=== PATIENT | male | born 1955 | race Caucasian/White ===

== ENCOUNTER 2018-01-08 18:55 | Emergency (ER) | payer SELFPAY ==
[~2018-01-08] VITALS: Ht 177.8 cm; Wt 110.6 kg
[2018-01-08 22:28] VITALS: BP 142/99
== END 2018-01-08 22:29 | disposition home or self-care (01) ==
LOC: EME 18:55
PROC: 2W38X1Z Immobilization of Right Upper Extremity using Splint (ICD-10-PCS; principal; 2018-01-08)
DX: S52.121A Displaced fracture of head of right radius, initial encounter for closed fracture (principal); V03.99XA Pedestrian with other conveyance injured in collision with car, pick-up truck or van, unspecified whether traffic or nontraffic accident, initial encounter; Y92.410 Unspecified street and highway as the place of occurrence of the external cause; F17.200 Nicotine dependence, unspecified, uncomplicated
CPT/HCPCS: 73080; 99281; 99283

== ENCOUNTER 2018-01-14 19:07 | Emergency (ER) | payer SELFPAY ==
[~2018-01-14] VITALS: Ht 177.8 cm; Wt 110.6 kg
[2018-01-15] MEDS ORDERED: BACITRACIN3.5 GM TP (02:44)
[2018-01-15 02:51] VITALS: BP 124/61
== END 2018-01-15 02:53 | disposition home or self-care (01) ==
LOC: EME → EDBD 19:07 → EME 01-15 02:53
PROC: 2W38X1Z Immobilization of Right Upper Extremity using Splint (ICD-10-PCS; principal; 2018-01-15)
DX: F10.129 Alcohol abuse with intoxication, unspecified (principal); S52.121D Displaced fracture of head of right radius, subsequent encounter for closed fracture with routine healing; Z47.89 Encounter for other orthopedic aftercare; Y90.9 Presence of alcohol in blood, level not specified; Z89.612 Acquired absence of left leg above knee; F17.200 Nicotine dependence, unspecified, uncomplicated; Z59.0 Homelessness
CPT/HCPCS: 73080; 99281; 99284

== ENCOUNTER 2018-01-17 19:13 | Emergency (ER) | payer SELFPAY ==
[~2018-01-17] VITALS: Ht 177.8 cm; Wt 110.6 kg
[~2018-01-17 19:13] MED LIST: BACITRACIN3.5 GM TP
[2018-01-17 20:33] VITALS: BP 134/73
== END 2018-01-17 20:30 | disposition home or self-care (01) ==
LOC: EME 19:13
DX: F10.129 Alcohol abuse with intoxication, unspecified (principal)
CPT/HCPCS: 99281; 99283

== ENCOUNTER 2018-01-18 18:11 | Emergency (ER) | payer OTHER ==
[~2018-01-18] VITALS: Ht 177.8 cm; Wt 81.8 kg
[2018-01-19 01:12] VITALS: BP 116/76
== END 2018-01-19 01:13 | disposition home or self-care (01) ==
LOC: EME 18:11
PROC: 2W38X1Z Immobilization of Right Upper Extremity using Splint (ICD-10-PCS; principal; 2018-01-19)
DX: J20.9 Acute bronchitis, unspecified (principal); M79.601 Pain in right arm; S50.11XD Contusion of right forearm, subsequent encounter; Z47.89 Encounter for other orthopedic aftercare; F17.210 Nicotine dependence, cigarettes, uncomplicated; Z59.0 Homelessness
CPT/HCPCS: 71046

== ENCOUNTER 2018-01-27 23:30 | Observation (INO) | payer OTHER ==
[~2018-01-27] VITALS: Ht 177.8 cm; Wt 109.0 kg
[2018-01-27 23:51] LABS: HEMOGLOBIN 13.9 G/DL (12.5-16.6); MCH 29.3 PG (29.0-34.0); MCHC 33.1 G/DL (30.0-36.0); MCV 88.6 FL (86-99); PLATELET COUNT 219 K/uL (156-360); RBC DIS.WIDTH-SD 49.2 % (39-53); RED BLOOD COUNT 4.74 M/uL (4.00-5.50); WHITE BLOOD COUNT 5.8 K/uL (4.1-10.2)
[2018-01-27 23:59] LABS: ALBUMIN 3.9 g/dL (3.2-4.8); CHLORIDE 101 mEq/L (99-109); SODIUM 135 mEq/L (136-147)
[2018-01-28 00:02] LABS: GLUCOSE 92 mg/dL (70-99)
[2018-01-28 00:03] LABS: TOTAL BILIRUBIN 0.4 mg/dL (0.0-1.0)
[2018-01-28 00:05] LABS: ALKALINE PHOSPHATASE 90 IU/L (3-129); CREATININE 0.8 mg/dL (0.6-1.3); GFR ESTIMATE (CALCULATED) > 59 mL/min/ (58.99-99999); SERUM ETHYL ALCOHOL 236 mg/dL
[2018-01-28 00:06] LABS: UREA NITROGEN (BUN) 15 mg/dL (9-23)
[2018-01-28 00:07] LABS: AST (GOT) 35 IU/L (2-34)
[2018-01-28 00:08] LABS: ALT (GPT) 37 IU/L (3-49)
[2018-01-28 00:09] LABS: LIPASE 30 U/L (1.0-51.0)
[2018-01-28 00:12] LABS: TROP-I INTERPRETATION NEGATIVE; TROPONIN-I 0.01 ng/mL (0.0-0.30)
[2018-01-28 04:29] LABS: APPEARANCE CLEAR ((CLEAR)); BILIRUBIN NEGATIVE; BLOOD NEGATIVE; COLOR YELLOW ((YELLOW)); GLUCOSE (STRIP) NEGATIVE; KETONES NEGATIVE; LEUKOCYTES NEGATIVE; NITRITE NEGATIVE; PROTEIN (STRIP) NEGATIVE; SPECIFIC GRAVITY 1.038 (1.000-1.030); UCUL ADDED? NO; UROBILINOGEN 0.2 MG/DL (0.2-1.0)
[2018-01-28 05:20] VITALS: BP 130/67
[2018-01-28 06:36] LABS: TROP-I INTERPRETATION NEGATIVE; TROPONIN-I < 0.01 ng/mL (0.0-0.30)
[2018-01-28 07:12] VITALS: BP 104/60
[2018-01-28 12:09] VITALS: BP 114/69
[2018-01-28] MEDS ORDERED: DOXYCYCLINE HY100 MG PO (13:12)
[2018-01-28] MEDS ORDERED: IBUPROFEN600 MG PO (13:13)
[2018-01-28] MEDS ORDERED: LIBRIUM25 MG PO (13:14)
[2018-01-28 13:51] LABS: TROP-I INTERPRETATION NEGATIVE; TROPONIN-I < 0.01 ng/mL (0.0-0.30)
== END 2018-01-28 16:04 | disposition home or self-care (01) ==
LOC: EME → EDBD 23:30 → EDOF 01-28 03:37 → 5WEST 01-28 03:37 → EDOF 01-28 03:37 → ENRESERV 01-28 03:47 → 5WEST 01-28 04:55
PROVIDERS: Emergency Medicine; Physician Assistant
DX: R07.9 Chest pain, unspecified (principal); L03.115 Cellulitis of right lower limb; F10.129 Alcohol abuse with intoxication, unspecified; Y90.7 Blood alcohol level of 200-239 mg/100 ml; F17.210 Nicotine dependence, cigarettes, uncomplicated; I25.2 Old myocardial infarction; J44.9 Chronic obstructive pulmonary disease, unspecified; Z89.512 Acquired absence of left leg below knee; Z79.82 Long term (current) use of aspirin; Z59.0 Homelessness
CPT/HCPCS: 71045; 71275; 74177; 80053; 81003; 83605; 83690; 83735; 84484; 85027; 93005; 94799; 99281; 99284; G0378; G0480; J1644; J2405; J3411; J7030

== ENCOUNTER 2018-01-30 03:44 | Emergency (ER) | payer OTHER ==
[~2018-01-30] VITALS: Ht 177.8 cm; Wt 120.0 kg
[~2018-01-30 03:44] MED LIST changes: +DOXYCYCLINE HY100 MG PO; +IBUPROFEN600 MG PO; +LIBRIUM25 MG PO
[2018-01-30 06:46] VITALS: BP 106/81
== END 2018-01-30 06:47 | disposition home or self-care (01) ==
LOC: EME 03:44
DX: Z87.898 Personal history of other specified conditions (principal); X31.XXXA Exposure to excessive natural cold, initial encounter; I10 Essential (primary) hypertension; I25.2 Old myocardial infarction; F17.200 Nicotine dependence, unspecified, uncomplicated; Z87.442 Personal history of urinary calculi; Z86.73 Personal history of transient ischemic attack (TIA), and cerebral infarction without residual deficits; Z89.512 Acquired absence of left leg below knee
CPT/HCPCS: 80053; 83605; 83690; 84484; 85027; 87040; 99281; 99283

== ENCOUNTER 2018-01-31 23:02 | Emergency (ER) | payer OTHER ==
[~2018-01-31] VITALS: Ht 177.8 cm; Wt 95.5 kg
[2018-02-01 00:02] LABS: BASOPHIL (%) 0.9 % (0-1); BASOPHIL COUNT 0.1 K/uL (0-0.1); EOSINOPHIL (%) 4.4 % (0-5); EOSINOPHIL COUNT 0.3 K/uL (0-0.3); HEMATOCRIT 45.9 % (38.0-50.0); HEMOGLOBIN 14.8 G/DL (12.5-16.6); IMMATURE GRANULOCYTE (%) 0.5 % (0.0-0.7); LYMPHOCYTE COUNT 2.4 K/uL (1.0-2.8); MCH 29.1 PG (29.0-34.0); MCHC 32.2 G/DL (30.0-36.0); MCV 90.2 FL (86-99); MONOCYTE (%) 11.9 % (3-12); MONOCYTE COUNT 0.7 K/uL (0-0.8); NEUTROPHIL (%) 41.3 % (45-76); NEUTROPHIL COUNT 2.4 K/uL (1.8-6.4); PLATELET COUNT 221 K/uL (156-360); RBC DIS.WIDTH-CV 15.5 % (11.8-14.6); RBC DIS.WIDTH-SD 51.1 % (39-53); RED BLOOD COUNT 5.09 M/uL (4.00-5.50); WHITE BLOOD COUNT 5.9 K/uL (4.1-10.2)
[2018-02-01 00:07] LABS: CHLORIDE 105 mEq/L (99-109); POTASSIUM 4.2 mEq/L (3.7-5.4); SODIUM 141 mEq/L (136-147)
[2018-02-01 00:09] LABS: GLUCOSE 93 mg/dL (70-99)
[2018-02-01 00:12] LABS: SERUM ETHYL ALCOHOL 301 mg/dL
[2018-02-01 00:13] LABS: CREATININE 0.8 mg/dL (0.6-1.3); GFR ESTIMATE (CALCULATED) > 59 mL/min/ (58.99-99999)
[2018-02-01 00:14] LABS: UREA NITROGEN (BUN) 11 mg/dL (9-23)
[2018-02-01] MEDS ORDERED: LEVAQUIN500 MG PO (06:15)
[2018-02-01] MEDS ORDERED: LIBRIUM25 MG PO (06:17)
[2018-02-01 06:38] VITALS: BP 109/69
== END 2018-02-01 06:40 | disposition home or self-care (01) ==
LOC: EME 23:02
PROVIDERS: Emergency Medicine
DX: J20.9 Acute bronchitis, unspecified (principal); F10.129 Alcohol abuse with intoxication, unspecified; I25.2 Old myocardial infarction; Z89.512 Acquired absence of left leg below knee; Z86.73 Personal history of transient ischemic attack (TIA), and cerebral infarction without residual deficits; I10 Essential (primary) hypertension; F17.200 Nicotine dependence, unspecified, uncomplicated
CPT/HCPCS: 71045; 80048; 85025; 99281; 99285; G0480; J7030

== ENCOUNTER 2018-02-01 17:49 | Emergency (ER) | payer OTHER ==
[~2018-02-01] VITALS: Ht 175.3 cm; Wt 81.1 kg
[~2018-02-01 17:49] MED LIST changes: +LEVAQUIN500 MG PO
[2018-02-01 20:24] LABS: HEMATOCRIT 43.8 % (38.0-50.0); HEMOGLOBIN 14.4 G/DL (12.5-16.6); MCH 29.3 PG (29.0-34.0); MCHC 32.9 G/DL (30.0-36.0); MCV 89.2 FL (86-99); PLATELET COUNT 211 K/uL (156-360); RBC DIS.WIDTH-SD 50.3 % (39-53); RED BLOOD COUNT 4.91 M/uL (4.00-5.50); WHITE BLOOD COUNT 6.8 K/uL (4.1-10.2)
[2018-02-01 20:32] LABS: CHLORIDE 103 mEq/L (99-109); POTASSIUM 3.7 mEq/L (3.7-5.4); SODIUM 141 mEq/L (136-147)
[2018-02-01 20:33] LABS: GLUCOSE 123 mg/dL (70-99)
[2018-02-01 20:37] LABS: CREATININE 0.7 mg/dL (0.6-1.3); GFR ESTIMATE (CALCULATED) > 59 mL/min/ (58.99-99999); SERUM ETHYL ALCOHOL 152 mg/dL
[2018-02-01 20:38] LABS: UREA NITROGEN (BUN) 10 mg/dL (9-23)
[2018-02-02 01:20] VITALS: BP 93/74
== END 2018-02-02 01:20 | disposition home or self-care (01) ==
LOC: EME 17:49
DX: F10.10 Alcohol abuse, uncomplicated (principal); F32.9 Major depressive disorder, single episode, unspecified; Y90.6 Blood alcohol level of 120-199 mg/100 ml; Z59.0 Homelessness; F17.200 Nicotine dependence, unspecified, uncomplicated; I10 Essential (primary) hypertension; I25.2 Old myocardial infarction; Z86.73 Personal history of transient ischemic attack (TIA), and cerebral infarction without residual deficits; Z89.512 Acquired absence of left leg below knee
CPT/HCPCS: 80048; 85027; 99281; 99284; G0480

== ENCOUNTER 2018-02-02 15:56 | Emergency (ER) | payer OTHER ==
[~2018-02-02] VITALS: Ht 177.8 cm; Wt 108.8 kg
[2018-02-02 17:00] LABS: BASOPHIL (%) 0.8 % (0-1); EOSINOPHIL (%) 4.2 % (0-5); EOSINOPHIL COUNT 0.2 K/uL (0-0.3); HEMATOCRIT 44.3 % (38.0-50.0); HEMOGLOBIN 14.6 G/DL (12.5-16.6); IMMATURE GRANULOCYTE (%) 0.4 % (0.0-0.7); LYMPHOCYTE COUNT 1.8 K/uL (1.0-2.8); MCH 29.2 PG (29.0-34.0); MCV 88.6 FL (86-99); MONOCYTE (%) 13.3 % (3-12); MONOCYTE COUNT 0.7 K/uL (0-0.8); NEUTROPHIL (%) 46.3 % (45-76); NEUTROPHIL COUNT 2.3 K/uL (1.8-6.4); PLATELET COUNT 198 K/uL (156-360); RBC DIS.WIDTH-CV 14.9 % (11.8-14.6); RBC DIS.WIDTH-SD 49.1 % (39-53)
[2018-02-02 17:09] LABS: ALBUMIN 3.8 g/dL (3.2-4.8); CHLORIDE 101 mEq/L (99-109); POTASSIUM 3.5 mEq/L (3.7-5.4); SODIUM 138 mEq/L (136-147)
[2018-02-02 17:10] LABS: MAGNESIUM 1.8 mg/dL (1.3-2.7)
[2018-02-02 17:11] LABS: GLUCOSE 95 mg/dL (70-99)
[2018-02-02 17:13] LABS: TOTAL BILIRUBIN 0.4 mg/dL (0.0-1.0)
[2018-02-02 17:14] LABS: SERUM ETHYL ALCOHOL 168 mg/dL
[2018-02-02 17:15] LABS: ALKALINE PHOSPHATASE 94 IU/L (3-129); CREATININE 0.7 mg/dL (0.6-1.3); GFR ESTIMATE (CALCULATED) > 59 mL/min/ (58.99-99999)
[2018-02-02 17:16] LABS: UREA NITROGEN (BUN) 12 mg/dL (9-23)
[2018-02-02 17:17] LABS: AST (GOT) 39 IU/L (2-34)
[2018-02-02 17:18] LABS: ALT (GPT) 46 IU/L (3-49); LIPASE 14 U/L (1.0-51.0)
[2018-02-02 17:20] LABS: TROP-I INTERPRETATION NEGATIVE; TROPONIN-I 0.02 ng/mL (0.0-0.30)
[2018-02-02 18:16] VITALS: BP 134/88
== END 2018-02-02 18:37 | disposition home or self-care (01) ==
LOC: EME 15:56
PROVIDERS: Emergency Medicine
DX: F10.10 Alcohol abuse, uncomplicated (principal); R07.9 Chest pain, unspecified; R06.02 Shortness of breath; R10.9 Unspecified abdominal pain; I25.2 Old myocardial infarction; Z89.512 Acquired absence of left leg below knee; Z87.442 Personal history of urinary calculi; Z86.73 Personal history of transient ischemic attack (TIA), and cerebral infarction without residual deficits; F17.200 Nicotine dependence, unspecified, uncomplicated; Y90.6 Blood alcohol level of 120-199 mg/100 ml
CPT/HCPCS: 80053; 83690; 83735; 84484; 85025; 93005; 99281; 99285; G0480

== ENCOUNTER 2018-02-04 13:20 | Emergency (ER) | payer OTHER ==
[~2018-02-04] VITALS: Ht 177.8 cm; Wt 102.5 kg
[2018-02-04 14:17] LABS: HEMATOCRIT 45.3 % (38.0-50.0); HEMOGLOBIN 15.4 G/DL (12.5-16.6); MCH 29.8 PG (29.0-34.0); MCV 87.6 FL (86-99); PLATELET COUNT 213 K/uL (156-360); RBC DIS.WIDTH-CV 14.7 % (11.8-14.6); RBC DIS.WIDTH-SD 47.8 % (39-53); RED BLOOD COUNT 5.17 M/uL (4.00-5.50); WHITE BLOOD COUNT 8.7 K/uL (4.1-10.2)
[2018-02-04 14:28] LABS: CHLORIDE 99 mEq/L (99-109); POTASSIUM 3.7 mEq/L (3.7-5.4); SODIUM 135 mEq/L (136-147)
[2018-02-04 14:30] LABS: GLUCOSE 90 mg/dL (70-99)
[2018-02-04 14:34] LABS: CREATININE 0.8 mg/dL (0.6-1.3); GFR ESTIMATE (CALCULATED) > 59 mL/min/ (58.99-99999)
[2018-02-04 14:35] LABS: UREA NITROGEN (BUN) 13 mg/dL (9-23)
[2018-02-04 14:42] LABS: TROP-I INTERPRETATION NEGATIVE; TROPONIN-I 0.01 ng/mL (0.0-0.30)
[2018-02-04 17:30] VITALS: BP 104/78
[2018-02-04] MEDS ORDERED: WHEELCHAIR1 EACH MC (22:05)
== END 2018-02-04 18:27 | disposition home or self-care (01) ==
LOC: EME 13:20
PROVIDERS: Emergency Medicine
DX: F10.129 Alcohol abuse with intoxication, unspecified (principal); Y90.9 Presence of alcohol in blood, level not specified; I10 Essential (primary) hypertension; I25.2 Old myocardial infarction; Z86.73 Personal history of transient ischemic attack (TIA), and cerebral infarction without residual deficits; Z89.512 Acquired absence of left leg below knee; F17.200 Nicotine dependence, unspecified, uncomplicated
CPT/HCPCS: 80048; 84484; 85027; 93005; 99281; 99285

== ENCOUNTER 2018-02-04 19:32 | Emergency (ER) | payer OTHER ==
[~2018-02-04] VITALS: Ht 177.8 cm; Wt 100.0 kg
[2018-02-04 19:36] VITALS: BP 111/80
[2018-02-04] MEDS ORDERED: WHEELCHAIR1 EACH MC (22:05)
== END 2018-02-04 22:35 | disposition home or self-care (01) ==
LOC: EME 19:32
DX: R26.9 Unspecified abnormalities of gait and mobility (principal); M79.605 Pain in left leg; M79.604 Pain in right leg; G89.29 Other chronic pain; I10 Essential (primary) hypertension; F17.200 Nicotine dependence, unspecified, uncomplicated; I25.2 Old myocardial infarction; Z89.512 Acquired absence of left leg below knee; Z86.73 Personal history of transient ischemic attack (TIA), and cerebral infarction without residual deficits; Z87.442 Personal history of urinary calculi; Z87.19 Personal history of other diseases of the digestive system
CPT/HCPCS: 99281; 99283

== ENCOUNTER 2018-02-08 01:29 | Emergency (ER) | payer OTHER ==
[~2018-02-08] VITALS: Ht 177.8 cm; Wt 107.6 kg
[~2018-02-08 01:29] MED LIST changes: +WHEELCHAIR1 EACH MC
[2018-02-08 01:58] LABS: BASOPHIL (%) 0.7 % (0-1); EOSINOPHIL (%) 7.1 % (0-5); EOSINOPHIL COUNT 0.4 K/uL (0-0.3); HEMATOCRIT 49.5 % (38.0-50.0); HEMOGLOBIN 16.6 G/DL (12.5-16.6); IMMATURE GRANULOCYTE (%) 0.4 % (0.0-0.7); LYMPHOCYTE (%) 33.3 % (15-42); LYMPHOCYTE COUNT 1.9 K/uL (1.0-2.8); MCH 29.4 PG (29.0-34.0); MCHC 33.5 G/DL (30.0-36.0); MCV 87.6 FL (86-99); MONOCYTE (%) 9.2 % (3-12); MONOCYTE COUNT 0.5 K/uL (0-0.8); NEUTROPHIL (%) 49.3 % (45-76); NEUTROPHIL COUNT 2.8 K/uL (1.8-6.4); PLATELET COUNT 262 K/uL (156-360); RBC DIS.WIDTH-CV 14.8 % (11.8-14.6); RBC DIS.WIDTH-SD 47.5 % (39-53); RED BLOOD COUNT 5.65 M/uL (4.00-5.50); WHITE BLOOD COUNT 5.7 K/uL (4.1-10.2)
[2018-02-08 02:10] LABS: CHLORIDE 99 mEq/L (99-109); POTASSIUM 4.3 mEq/L (3.7-5.4); SODIUM 136 mEq/L (136-147)
[2018-02-08 02:12] LABS: GLUCOSE 91 mg/dL (70-99)
[2018-02-08 02:15] LABS: SERUM ETHYL ALCOHOL 181 mg/dL
[2018-02-08 02:16] LABS: CREATININE 0.8 mg/dL (0.6-1.3); GFR ESTIMATE (CALCULATED) > 59 mL/min/ (58.99-99999)
[2018-02-08 02:17] LABS: UREA NITROGEN (BUN) 10 mg/dL (9-23)
[2018-02-08 02:18] LABS: TROP-I INTERPRETATION NEGATIVE; TROPONIN-I < 0.01 ng/mL (0.0-0.30)
[2018-02-08 04:29] LABS: COCAINE NEGATIVE (150 ng/mL); METHAMPHETAMINE NEGATIVE (500 ng/mL); OPIATES (MORPHINE) NEGATIVE (100 ng/mL); PHENCYCLIDINE NEGATIVE (25 ng/mL); THC CANNABINOIDS NEGATIVE (50 ng/mL)
[2018-02-08 04:30] LABS: AMPHETAMINE NEGATIVE (500 ng/mL); BARBITURATES NEGATIVE (200 ng/mL); BENZODIAZEPINES PRESUMPTIVE POSITIVE (150 ng/mL); BUPRENORPHINE NEGATIVE (10 ng/mL); METHADONE NEGATIVE (200 ng/mL); OXYCODONE NEGATIVE (100 ng/mL); PROPOXYPHENE NEGATIVE (300 ng/mL); TRICYCLIC ANTIDEPRESSANTS NEGATIVE (300 ng/mL)
[2018-02-08 05:15] LABS: BENZODIAZEPINES, URINE SCREEN POSITIVE (200 ng/mL)
[2018-02-08 06:11] VITALS: BP 144/83
== END 2018-02-08 06:35 | disposition home or self-care (01) ==
LOC: EME → EDBD 01:29 → EME 06:35
PROVIDERS: Emergency Medicine
DX: R07.89 Other chest pain (principal); F10.129 Alcohol abuse with intoxication, unspecified; Y90.6 Blood alcohol level of 120-199 mg/100 ml; I10 Essential (primary) hypertension; I25.2 Old myocardial infarction; Z59.0 Homelessness; F17.200 Nicotine dependence, unspecified, uncomplicated; Z86.73 Personal history of transient ischemic attack (TIA), and cerebral infarction without residual deficits; Z89.512 Acquired absence of left leg below knee; Z87.442 Personal history of urinary calculi
CPT/HCPCS: 71045; 80048; 84484; 84999; 85025; 93005; 99281; 99285; G0480; J7030

== ENCOUNTER 2018-02-09 20:20 | Emergency (ER) | payer OTHER ==
[~2018-02-09] VITALS: Ht 177.8 cm; Wt 86.3 kg
[2018-02-09 20:49] VITALS: BP 134/116
== END 2018-02-09 23:35 | disposition home or self-care (01) ==
LOC: EME 20:20
DX: F10.129 Alcohol abuse with intoxication, unspecified (principal); Y90.9 Presence of alcohol in blood, level not specified; Z53.21 Procedure and treatment not carried out due to patient leaving prior to being seen by health care provider; I10 Essential (primary) hypertension; I25.2 Old myocardial infarction; F17.200 Nicotine dependence, unspecified, uncomplicated; Z86.73 Personal history of transient ischemic attack (TIA), and cerebral infarction without residual deficits; Z87.442 Personal history of urinary calculi; Z87.19 Personal history of other diseases of the digestive system; Z89.512 Acquired absence of left leg below knee
CPT/HCPCS: 93005; 99281; 99283

== ENCOUNTER 2018-02-10 01:08 | Emergency (ER) | payer OTHER ==
[~2018-02-10] VITALS: Ht 177.8 cm; Wt 90.9 kg
[2018-02-10 01:10] VITALS: BP 00/00
== END 2018-02-10 01:33 | disposition home or self-care (01) ==
LOC: EME 01:08
DX: Z00.00 Encounter for general adult medical examination without abnormal findings (principal); F10.129 Alcohol abuse with intoxication, unspecified; I10 Essential (primary) hypertension; I25.2 Old myocardial infarction; Z86.73 Personal history of transient ischemic attack (TIA), and cerebral infarction without residual deficits; Z89.512 Acquired absence of left leg below knee; F17.200 Nicotine dependence, unspecified, uncomplicated
CPT/HCPCS: 99281; 99282

== ENCOUNTER 2018-02-11 05:07 | Emergency (ER) | payer OTHER ==
[~2018-02-11] VITALS: Ht 177.8 cm; Wt 81.8 kg
[2018-02-11 05:39] LABS: CHLORIDE 104 mEq/L (99-109); POTASSIUM 4.4 mEq/L (3.7-5.4); SODIUM 141 mEq/L (136-147)
[2018-02-11 05:40] LABS: GLUCOSE 97 mg/dL (70-99)
[2018-02-11 05:44] LABS: CREATININE 0.8 mg/dL (0.6-1.3); GFR ESTIMATE (CALCULATED) > 59 mL/min/ (58.99-99999); SERUM ETHYL ALCOHOL 102 mg/dL
[2018-02-11 05:45] LABS: HEMATOCRIT 46.4 % (38.0-50.0); HEMOGLOBIN 15.4 G/DL (12.5-16.6); MCH 29.7 PG (29.0-34.0); MCHC 33.2 G/DL (30.0-36.0); MCV 89.4 FL (86-99); PLATELET COUNT 224 K/uL (156-360); RBC DIS.WIDTH-CV 15.3 % (11.8-14.6); RBC DIS.WIDTH-SD 50.5 % (39-53); RED BLOOD COUNT 5.19 M/uL (4.00-5.50); UREA NITROGEN (BUN) 17 mg/dL (9-23); WHITE BLOOD COUNT 6.3 K/uL (4.1-10.2)
[2018-02-11 05:51] LABS: TROP-I INTERPRETATION NEGATIVE; TROPONIN-I < 0.01 ng/mL (0.0-0.30)
[2018-02-11 07:53] LABS: TROP-I INTERPRETATION NEGATIVE; TROPONIN-I 0.02 ng/mL (0.0-0.30)
[2018-02-11 09:29] VITALS: BP 122/83
== END 2018-02-11 10:04 | disposition home or self-care (01) ==
LOC: EME → EDBD 05:07 → EME 10:04
PROVIDERS: Emergency Medicine
DX: R07.89 Other chest pain (principal); G89.29 Other chronic pain; F10.10 Alcohol abuse, uncomplicated; Y90.5 Blood alcohol level of 100-119 mg/100 ml; Z89.512 Acquired absence of left leg below knee
CPT/HCPCS: 71045; 80048; 84484; 85027; 93005; 99281; 99284; G0480

== ENCOUNTER 2018-02-14 22:12 | Emergency (ER) | payer OTHER ==
[~2018-02-14] VITALS: Ht 177.8 cm; Wt 93.0 kg
[2018-02-14 23:16] LABS: TROP-I INTERPRETATION NEGATIVE; TROPONIN-I < 0.01 ng/mL (0.0-0.30)
[2018-02-15 02:05] VITALS: BP 148/62
== END 2018-02-15 02:06 | disposition left against medical advice (07) ==
LOC: EME 22:12
PROVIDERS: Emergency Medicine
DX: F10.129 Alcohol abuse with intoxication, unspecified (principal); Y90.7 Blood alcohol level of 200-239 mg/100 ml; R07.9 Chest pain, unspecified; I10 Essential (primary) hypertension; I25.2 Old myocardial infarction; F17.200 Nicotine dependence, unspecified, uncomplicated; Z87.442 Personal history of urinary calculi; Z86.73 Personal history of transient ischemic attack (TIA), and cerebral infarction without residual deficits; Z89.512 Acquired absence of left leg below knee
CPT/HCPCS: 71045; 84484; 93005; 99281; 99284; G0480